=== PATIENT | male | born 1980 | race Caucasian/White ===

== ENCOUNTER 2018-04-13 14:52 | Emergency (ER) | payer SELFPAY ==
[~2018-04-13] VITALS: Ht 177.8 cm; Wt 104.3 kg
[2018-04-13] MEDS ORDERED: LIDOCAINE HCL 1% 20 ML VIAL TP ONE (15:15)
[2018-04-13] MEDS ORDERED: NEOMY/BACITRA/POLYMYXIN B OINT UD PACKET TP ONE ×2 (15:15→15:29)
[2018-04-13 15:56] VITALS: BP 140/70
== END 2018-04-13 15:57 | disposition home or self-care (01) ==
LOC: ER 14:52
DX: S61.011A Laceration without foreign body of right thumb without damage to nail, initial encounter (principal); Z88.0 Allergy status to penicillin; W25.XXXA Contact with sharp glass, initial encounter; Y93.89 Activity, other specified; Y92.89 Other specified places as the place of occurrence of the external cause; Y99.8 Other external cause status
CPT/HCPCS: A4663

== ENCOUNTER 2018-10-28 11:47 | Emergency (ER) | payer SELFPAY ==
[~2018-10-28] VITALS: Ht 175.3 cm; Wt 149.7 kg
[2018-10-28] MEDS: LIDOCAINE 2% (UROJET) 10 ML JELLY MM ONE (12:13)
--- NOTE | 2018-10-28 12:16 | NUR ---
DR BERGER AT BEDSIDE FOR WOUND CARE
--- NOTE | 2018-10-28 12:38 | NUR ---
STERILE BANDAGE APPLIED. DC, RX (INCLUDING ALL PRECAUTIONS) AND FOLLOW UP INSTRUCTIONS GIVEN AND EXPLAINED TO PATIENT AND FEMALE BIOINFORMATICS SUPPORT SPECIALIST.. WHO STATE THEY UNDERSTAND ALL INSTRUCTIONS.
== END 2018-10-28 12:42 | disposition home or self-care (01) ==
LOC: ER 11:47
DX: L02.511 Cutaneous abscess of right hand (principal); F12.10 Cannabis abuse, uncomplicated; Z88.0 Allergy status to penicillin
CPT/HCPCS: A4663